=== PATIENT | male | born 1975 | race Caucasian/White ===

== ENCOUNTER 2020-01-10 16:55 | Emergency (ER) | payer BC ==
[2020-01-10] MEDS ORDERED: BUFFERED LIDOCAINE 10 ML SYRINGE IU ONE (17:16)
--- NOTE | 2020-01-10 17:19 | ED Physician Documentation ---
History of Present Illness - Stated complaint Stated Complaint: LT FINGER LAC - Chief complaint Chief Complaint: Laceration - History obtained from History obtained from: Patient - Additonal information Additional information: Patient comes emergency department complaining of a laceration to his left index finger while cutting with a sharp knife. Patient denies any other injuries. He states his last tetanus shot was approximately 10 years ago. Patient has been able to move the finger fully since the incident happened. Patient states that the incident happened approximately 1 hour ago. No other complaints at this time. Review of Systems Ten Systems: 10 systems reviewed and negative Constitutional: reports: Reviewed and negative Eyes: reports: Reviewed and negative Ears: reports: Reviewed and negative Nose: reports: Reviewed and negative Throat: reports: Reviewed and negative Cardiac: reports: Reviewed and negative Respiratory: reports: Reviewed and negative GI: reports: Reviewed and negative : reports: Reviewed and negative Skin: reports: Laceration (s) Musculoskeletal: reports: Reviewed and negative Neurologic: reports: Reviewed and negative Psychiatric: reports: Reviewed and negative Endocrine: reports: Reviewed and negative Immunocompromised: reports: Reviewed and negative PD PAST MEDICAL HISTORY - Allergies Allergies/Adverse Reactions: Allergies Allergy/AdvReac Type Severity Reaction Status Date / Time No Known Drug Allergies Allergy Verified 01/10/20 17:02 PD ED PE NORMAL - Vitals Vital signs reviewed: Yes - General General: Alert and oriented X 3, No acute distress - HEENT HEENT: Atraumatic, PERRL, EOMI, Moist mucous membranes - Neck Neck: Supple, no meningeal sign - Cardiac Cardiac: Strong equal pulses - Respiratory Respiratory: No respiratory distress - Derm Derm: Normal color, Warm and dry, No rash, Other (2 cm laceration noted just distal to the patient's left index finger PIP joint on the radial aspect. Moderate bleeding is noted, which is easily compressible and nonpulsatile. No tendon in floor of wound.) - Extremities Extremities: No deformity, Other (Patient has full strength to resistance for both flexion and extension at the PIP and DIP joints of his left index finger.) - Neuro Neuro: Alert and oriented X 3, No motor deficit, No sensory deficit, Other (Grossly normal) - Psych Psych: Normal mood, Normal affect Results - Vitals Vitals: Vital Signs - 24 hr 01/10/20 16:58 Temperature 36.4 C L Heart Rate 89 Respiratory 18 Rate Blood Pressure 155/113 H O2 Saturation 97 Oxygen O2 Source Room air Procedures - Laceration (location) L index finger Length in cm: 2 Wound type: Linear Neurovascular status: Sensory intact, Motor intact, Vascular intact Tendon involvement: Tendon intact Anesthesia: Lidocaine 1% Wound Preparation: Hibiclens, Irrigated copiously NS, To the base. No: FB identified Skin layer closure: Nylon, Interrupted, Size #-0 - enter number (4.0), Sutures - enter # (4) Other: Patient tolerated well, No complications, Neurovascular intact, Dressing applied, Tetanus booster given Complexity: Intermediate PD MEDICAL DECISION MAKING - ED course Complexity details: considered differential, d/w patient, d/w family ED course: Wound repaired with sutures as noted above. We have discussed wound care, the timeline for suture removal, and the usual indications for return. Departure - Departure Disposition: 01 Home, Self Care Clinical Impression: Laceration Condition: Stable Instructions: ED Laceration All Comments: Please keep your wound clean and dry. You may let water and soap run over the wound when you are washing, but do not rub, scrub, or immerse the wound until the sutures are removed. This is to prevent infection. You should have your wound rechecked in 7 days by your primary doctor or at urgent care/walk-in. Sutures should be removed on that day unless the wound is deemed not to be ready by the reevaluating physician.
[2020-01-10] MEDS ORDERED: TETANUS/DIPHTHERIA/PERTUSSIS 0.5 ML SYRINGE IM ONE (17:23)
[2020-01-10 17:53] VITALS: BP 146/86
== END 2020-01-10 18:13 | disposition home or self-care (01) ==
LOC: ED 16:55
DX: S61.211A Laceration without foreign body of left index finger without damage to nail, initial encounter (principal); W26.0XXA Contact with knife, initial encounter; Y92.833 Campsite as the place of occurrence of the external cause
CPT/HCPCS: 12001; 90471; 99282; 99283